=== PATIENT | male | born 1985 | race Two or more races ===

== ENCOUNTER 2025-01-04 02:33 | Emergency (ER) | payer BC ==
[~2025-01-04] VITALS: Ht 190.5 cm; Wt 133.8 kg
[2025-01-04] MEDS ORDERED: CEFAZOLIN SODIUM 1,000 MG VIAL IM STA (03:13)
[2025-01-04] MEDS ORDERED: TETANUS & DIPHTHERIA TOX,ADULT 0.5 ML VIAL IM STA (03:13)
== END 2025-01-04 03:57 | disposition home or self-care (01) ==
LOC: ER 02:33
DX: S01.01XA Laceration without foreign body of scalp, initial encounter (principal); W19.XXXA Unspecified fall, initial encounter; Y93.89 Activity, other specified; Y92.59 Other trade areas as the place of occurrence of the external cause; Y99.8 Other external cause status
CPT/HCPCS: 12001; 90471; 90714; 96372; J1670